=== PATIENT | female | born 1975 | race Caucasian/White ===

== ENCOUNTER 2016-09-18 11:35 | Outpatient (CLI) | payer OTHER ==
--- NOTE | 2016-09-18 13:23 | DIAGNOSTIC IMAGING REPORT ---
PROCEDURE: US ABDOMEN ULTRASOUND-COMPLETE INDICATION: ABD PAIN TECHNIQUE: Ansari scale and color Doppler sonographic images of the abdomen were obtained without comparison. COMPARISON: Abdominal ultrasound 11/25/2014 FINDINGS: The liver is enlarged and demonstrates increased echogenicity. No mass or intrahepatic biliary dilatation. The gallbladder is normal without stones or sludge. The wall is normal thickness measuring 1.8 mm No pericholecystic fluid or Lomeli sign. The extrahepatic common duct is not well seen The visualized pancreas is normal without ductal dilatation or peripancreatic fluid collection. The abdominal aorta is normal in its course and caliber. The retrohepatic inferior vena cava is patent. There is appropriate hepatopetal flow in the portal vein. The right kidney measures 10.7 cm in length. The left kidney measures 11.3 cm in length. Both kidneys demonstrate normal morphology and cortical thickness without hydronephrosis, cyst, solid mass, or shadowing calculus. Color Doppler imaging demonstrates normal blood flow in each kidney. The spleen is normal in size measuring 9.6 x 5.4 cm in length. There is no perihepatic or perisplenic ascites. IMPRESSION: 1. Enlarged fatty liver.
== END 2016-09-18 23:00 ==
LOC: US SRH 11:35
DX: R10.9 Unspecified abdominal pain (principal); K76.0 Fatty (change of) liver, not elsewhere classified

== ENCOUNTER 2016-11-05 10:08 | Outpatient (CLI) | payer OTHER ==
--- NOTE | 2016-11-05 10:46 | DIAGNOSTIC IMAGING REPORT ---
PROCEDURE: CT SINUS/FACIAL BONES W/O CONT CLINICAL INDICATION: SINUSITIS TECHNIQUE: Noncontrast axial CT images through the sinuses. Coronal and sagittal reformations were created. COMPARISON: None. FINDINGS: The frontal sinuses are normally aerated. The outflow tracts are patent. Sphenoid sinuses and their outflow tracts are patent. No mucosal thickening throughout the ethmoid air cells. The maxillary sinuses are normally aerated with a 1 cm mucous retention cyst on the right. The outflow tracts are patent. The nasal septum is deviated to the left. Nasal passages are patent with normal nasal turbinate morphology. No facial bone fractures. Temporomandibular joints are normally aligned. Bony orbits are intact. Orbital soft tissues appear normal. Facial soft tissues and visible glandular structures are symmetric. IMPRESSION: 1. Right maxillary sinus mucous retention cyst. All CT scans at this facility use dose modulation, iterative reconstruction, and/or weight-based dosing when appropriate to reduce radiation dose to as low as reasonably achievable.
== END 2016-11-05 23:00 ==
LOC: CT SRH 10:08
DX: J34.1 Cyst and mucocele of nose and nasal sinus (principal)